=== PATIENT | male | born 1960 | race Asian ===

== ENCOUNTER 2019-03-11 21:27 | Emergency (ER) | payer OTHER ==
[~2019-03-11] VITALS: Ht 167.6 cm; Wt 79.8 kg
[2019-03-11 21:33] VITALS: Ht 167.6 cm; Wt 79.8 kg
[2019-03-11] MEDS ORDERED: ASPIR-TRIN325 MG (22:53)
[2019-03-11] MEDS ORDERED: LOTREL1 CA5 (22:53)
[2019-03-11] MEDS ORDERED: METFORMIN HYDR500 M1 (22:54)
[2019-03-11] MEDS ORDERED: MAXZIDE1 TAB (22:54)
[2019-03-11] MEDS ORDERED: OXYCODONE HCL15 M1 (22:55)
[2019-03-11 22:56] LABS: PLATELET COUNT 207 x10^3mcL (130-400); RED CELL DISTRIBUTION WIDTH 12.8 % (11.5-14.5)
[2019-03-11 23:05] LABS: CALCIUM 9.4 mg/dL (8.5-10.1); CARBON DIOXIDE 28.4 mmol/L (21-32); CHLORIDE SERUM 97 mmol/L (98-107); GFR1 > 60 mL/min; GLUCOSE SERUM 149 mg/dL (74-106); POTASSIUM SERUM 3.3 mmol/L (3.5-5.1); SODIUM SERUM 135 mmol/L (136-145)
[2019-03-11 23:10] LABS: ALBUMIN 3.9 g/dL (3.4-5.0); ALKALINE PHOSPHATASE 79 U/L (46-116); ALT/SGPT 133 U/L (16-63); AST/SGOT 41 U/L (15-37); BILIRUBIN TOTAL 0.7 mg/dL (0.20-1.00); TOTAL PROTEIN, SERUM 6.9 g/dL (6.4-8.2)
[2019-03-11 23:17] LABS: BAND NEUTROPHIL 1 % (0-10); MONOCYTE 3 % (0-7); SEGMENTED NEUTROPHILS 86 % (37-75)
[2019-03-11 23:18] LABS: PLATELET MORPHOLOGY PLATELETS NORMAL; rbc morphology (normal/abnorm) NORMAL (NORMAL)
[2019-03-12 00:21] LABS: microscopic required? NO
[2019-03-12 00:48] LABS: UA SPECIFIC GRAVITY <=1.005 (1.005-1.035); urine erythrocyte NEGATIVE (NEGATIVE)
[2019-03-12 01:57] VITALS: BP 134/78
== END 2019-03-12 01:57 | disposition home or self-care (01) ==
LOC: ED 21:27
PROVIDERS: Emergency Medicine
DX: J18.0 Bronchopneumonia, unspecified organism (principal); I10 Essential (primary) hypertension; E11.9 Type 2 diabetes mellitus without complications; Z88.0 Allergy status to penicillin
CPT/HCPCS: 36415; J7030

== ENCOUNTER 2019-03-12 11:07 | Emergency (ER) | payer OTHER ==
[~2019-03-12] VITALS: Ht 167.6 cm; Wt 80.3 kg
[~2019-03-12 11:07] MED LIST: ASPIR-TRIN325 MG; LOTREL1 CA5; MAXZIDE1 TAB; METFORMIN HYDR500 M1; OXYCODONE HCL15 M1
[2019-03-12 11:18] VITALS: Ht 167.6 cm; Wt 80.3 kg
[2019-03-12 11:47] VITALS: BP 141/90
== END 2019-03-12 11:47 | disposition home or self-care (01) ==
LOC: ED 11:07
DX: J20.9 Acute bronchitis, unspecified (principal); R04.2 Hemoptysis; I10 Essential (primary) hypertension; E11.9 Type 2 diabetes mellitus without complications; Z88.0 Allergy status to penicillin; Z98.890 Other specified postprocedural states

== ENCOUNTER 2019-10-18 15:06 | Emergency (ER) | payer OTHER ==
[~2019-10-18] VITALS: Ht 167.6 cm; Wt 76.2 kg
[2019-10-18 15:20] VITALS: Ht 167.6 cm; Wt 76.2 kg
[2019-10-18 16:00] LABS: BASOPHIL % 0.6 % (0-2); CALCIUM 9.3 mg/dL (8.5-10.1); CARBON DIOXIDE 33.9 mmol/L (21-32); CHLORIDE SERUM 99 mmol/L (98-107); CREATININE SERUM 0.9 mg/dL (0.7-1.3); GFR1 > 60 mL/min; GLUCOSE SERUM 121 mg/dL (74-106); PLATELET COUNT 256 x10^3mcL (130-400); POTASSIUM SERUM 4.5 mmol/L (3.5-5.1); RED CELL DISTRIBUTION WIDTH 12.9 % (11.5-14.5); SODIUM SERUM 135 mmol/L (136-145)
[2019-10-18 16:06] LABS: ALKALINE PHOSPHATASE 53 U/L (46-116); ALT/SGPT 80 U/L (16-63); AST/SGOT 33 U/L (15-37); BILIRUBIN TOTAL 0.6 mg/dL (0.20-1.00); TOTAL PROTEIN, SERUM 7.4 g/dL (6.4-8.2)
[2019-10-18 17:35] VITALS: BP 123/72
== END 2019-10-18 17:35 | disposition home or self-care (01) ==
LOC: ED 15:06
DX: S49.91XA Unspecified injury of right shoulder and upper arm, initial encounter (principal); R91.1 Solitary pulmonary nodule; R55 Syncope and collapse; I10 Essential (primary) hypertension; E11.9 Type 2 diabetes mellitus without complications; Z88.0 Allergy status to penicillin; Z86.73 Personal history of transient ischemic attack (TIA), and cerebral infarction without residual deficits; W18.30XA Fall on same level, unspecified, initial encounter; Y93.89 Activity, other specified; Y92.89 Other specified places as the place of occurrence of the external cause; Y99.8 Other external cause status
CPT/HCPCS: 36415